=== PATIENT | female | born 1940 | race Caucasian/White ===

== ENCOUNTER → 2016-12-07 | Outpatient (CLI) | payer MEDICARE, OTHER ==
[2016-12-07 20:15] LABS: RED BLOOD COUNT 3.37 M/UL (4.00-5.10); WHITE BLOOD COUNT 10.2 K/UL (4.5-11.0)
== END ==
PROVIDERS: Family Medicine
DX: R19.7 Diarrhea, unspecified (principal); K92.1 Melena
CPT/HCPCS: 80053; 85025